=== PATIENT | male | born 1980 ===

== ENCOUNTER → 2021-11-15 | Outpatient (CLI) | LOC: M SOG 15:42 | PROVIDERS: ATTEND Physician Assistant | DX: M79.645 Pain in left finger(s) (principal); Z89.022 Acquired absence of left finger(s) ==

== ENCOUNTER → 2021-11-15 | Outpatient (CLI) | LOC: M SOG 13:33 | PROVIDERS: ATTEND Physician Assistant | DX: M79.645 Pain in left finger(s) (principal); Z53.9 Procedure and treatment not carried out, unspecified reason ==